=== PATIENT | male | born 1955 | race Two or more races ===

== ENCOUNTER 2021-08-26 14:33 | Outpatient (CLI) | payer OTHER | END 2021-08-26 14:36 | disposition home or self-care (01) | LOC: LAB 14:33 | PROVIDERS: ATTEND Urology | DX: R97.20 Elevated prostate specific antigen [PSA] (principal) ==

== ENCOUNTER 2021-09-06 07:20 | Outpatient (CLI) | payer OTHER | END 2021-09-06 07:39 | disposition home or self-care (01) | LOC: SONOGRAMA 07:20 | PROVIDERS: ATTEND Urology | DX: D29.1 Benign neoplasm of prostate (principal); R97.20 Elevated prostate specific antigen [PSA] ==